=== PATIENT | female | born 1995 | race Caucasian/White ===

== ENCOUNTER 2016-09-29 10:30 | Emergency (ER) | payer OTHER ==
--- NOTE | 2016-09-29 11:37 | EDPHY ---
H & P Stated Complaint: Sent by nadya/magali for eval headache Time Seen by Provider: 09/29/16 11:03 HPI/ROS: CHIEF COMPLAINT: Headache, nausea/vomiting HISTORY OF PRESENT ILLNESS: The patient is a 20 y/o female arriving with her friends from [facility] for a worsening constant headache for the last 9 days. Her headache began while she was studying for classes with no preceding trauma or other event. The TIERNEY was mild at first and gradually increasing. She describes a "band around my head with pressure on my forehead." She took ibuprofen and used a hot compress without improvement. She was evaluated at [facility] on Sunday, 3 days ago, and was prescribed a medication for sinus problems. This did not improve her symptoms either and she has been unable to sleep due to pain, which she currently rates 7/10 in severity. Her symptoms are aggravated by light and certain positions like lying on her stomach. She has associated vomiting and sweating that has caused difficulty eating. She has been unable to attend some of her classes due to TIERNEY/vomiting. No vision changes , fever, dysuria, weakness, paresthesias, dyspnea, chest pain, neck pain, back pain. She did have strep pharyngitis 2 weeks ago. LMP was 3 years ago when she started control. Her vaccinations are up-to-date. REVIEW OF SYSTEMS: Constitutional: No fever, no chills Eyes: No visual changes ENT: No sore throat Respiratory: No cough, no shortness of breath Cardiac: No chest pain Gastrointestinal: see HPI Genitourinary: No hematuria, no dysuria Musculoskeletal: No leg pain or swelling Skin: No rash Neurological: see HPI Psychiatric: No depression - Personal History LMP (Females 10-55): Extended Cycle BCP/Inj Current Tetanus Diphtheria and Acellular Pertussis (TDAP): Yes - Medical/Surgical History PMH: "Hormone deficiency" with Metformin prescribed by her OBGYN. Vaccinations up-to-date. Other PMH: hormone problems - Social History Smoking Status: Never smoked Additional Social History: Friends at bedside. [employer] student. - Physical Exam Exam: General Appearance: Alert, no distress, well-appearing Eyes: Pupils equal and round, no conjunctival pallor or injection ENT, Mouth: Mucous membranes moist Neck: Normal inspection, supple Respiratory: Lungs are clear to auscultation Cardiovascular: Regular rate and rhythm Gastrointestinal: Abdomen is soft and non- tender Back: No CVA tenderness Neurological: A&O, CN II-XII intact, motor/sensory intact, normal gait Skin: Warm and dry, no rash Extremities: Nontender, no pedal edema Psychiatric: Mood and affect normal Constitutional: Initial Vital Signs Temperature (C) 36.5 C 09/29/16 10:35 Heart Rate 71 09/29/16 10:35 Respiratory Rate 18 09/29/16 10:35 Blood Pressure 117/80 09/29/16 10:35 O2 Sat (%) 97 09/29/16 10:35 O2 Delivery Mode Room Air Allergies/Adverse Reactions: No Known Allergies Allergy (Unverified 09/29/16 10:42) Home Medications: Medication Instructions Recorded Control 09/29/16 Hydrocodone/APAP 5/325 [Ferndale 1 - 2 tab PO Q4H PRN #10 tab 09/29/16 5/325] Ondansetron Odt [Zofran Odt 4 mg 4 mg PO Q4 PRN #6 tab 09/29/16 (*)] metFORMIN HCL [Glucophage 500 mg 500 mg PO 09/29/16 (*)] Medical Decision Making - Diagnostics Imaging Results: CT head: NAD Imaging: Discussed imaging studies w/ transportation planning engineer Radiologist, I viewed and interpreted images myself ED Course/Re-evaluation: This is a well-appearing 20 y/o female who presents for evaluation of a worsening 9-day headache with associated vomiting. Her exam is completely unremarkable: she has no CVA tenderness, her neck is supple, she is afebrile, and she has a normal neuro exam. Will investigate urinary causes for her symptoms first. Plan for IV, basic labs, UA, and symptom management. 1L IV NS, 10mg IV Reglan, 10mg IV Decadron, and 25mg IV Benadryl administered for symptoms. Urine dip is normal. WBC slightly elevated at 10.9. Plan for head CT. If that is negative will pursue spinal tap for possible viral meningitis. Head CT is negative. I reevaluated patient and discussed results. Patient feels improved after medication administration. Talking with friends and texting on phone as I enter the room. Neuro exam remains normal. I recommended lumbar puncture to rule out meningitis and discussed recommendation with patient's mother at her request. She agrees to procedure. 1400: Procedure: Lumbar puncture. Indication: headache x 9 days After verbal informed consent from patient explaining the risks including infection, bleeding, and neurologic damage, a lumbar puncture was performed after the patient was prepped and draped in the usual fashion. The back was anesthetized with 1% lidocaine. Approximately 4 cc of clear fluid was obtained. Opening pressure was not obtained. There were no complications. The procedure was performed by myself, Dr. Crandall. LP results d/w pt. No evidence of meningitis. Few RBC present, considered SAH , though clinical history is not suggestive of SAH, given 9 days of gradually increasing TIERNEY. Plan to f/u with neurology. Warning signs discussed. Differential Diagnosis: Headache including but not limited to subarachnoid hemorrhage, migraine headache , tension headache and infectious causes such as meningitis, pharyngitis and sinusitis. - Data Points Laboratory Results: Laboratory Results 09/29/16 10:59 09/29/16 10:59 Microbiology Results: MICROBIOLOGY 09/29/16 14:00 Cerebral Spinal Fluid Gram Stain - Final 09/29/16 14:00 Cerebral Spinal Fluid CSF Culture - Preliminary Medications Given: Discontinued Medications Dexamethasone (Decadron Injection) 10 mg IVP EDNOW ONE Stop: 09/29/16 11:49 Last Admin: 09/29/16 12:10 Dose: 10 mg Diphenhydramine HCl (Benadryl Injection) 25 mg IVP EDNOW ONE Stop: 09/29/16 11:49 Last Admin: 09/29/16 12:10 Dose: 25 mg Sodium Chloride (Ns) 1,000 mls @ 0 mls/hr IV EDNOW ONE; Wide Open PRN Reason: Protocol Stop: 09/29/16 11:42 Last Admin: 09/29/16 12:10 Dose: 1,000 mls Sodium Chloride (Ns) 1,000 mls @ 0 mls/hr IV ONCE ONE PRN Reason: Wide Open Stop: 09/29/16 17:03 Last Admin: 09/29/16 15:15 Dose: 1,000 mls Metoclopramide HCl (Reglan Injection) 10 mg IVP EDNOW ONE Stop: 09/29/16 11:49 Last Admin: 09/29/16 12:10 Dose: 10 mg Departure - Departure Disposition: Home, Routine, Self-Care Clinical Impression: Headache Qualifiers: Headache type: new daily persistent Qualified Code(s): G44.52 - New daily persistent headache (NDPH) Condition: Good Instructions: Acute Headache (ED) Additional Instructions: 1. Use ibuprofen or Excedrin as directed on the packaging as needed for headache for the next few days. 2. Follow up with Dr. Menchaca, neurologist, in the next week for evaluation for migraines. 3. Establish care with a primary care physician in the area. You've been referred to Dr. Vigil. 4. Return to the ED for worsening of condition including fever, weakness, numbness. Referrals: Ekaterina Vigil MD [Medical Doctor] - As per Instructions Abdelrahman Menchaca MD [Medical Doctor] - As per Instructions (Call today to make an appointment.) Prescriptions: Hydrocodone/APAP 5/325 [Ferndale 5/325] 1 - 2 tab PO Q4H PRN #10 tab PRN Reason: Pain, Moderate Ondansetron Odt [Zofran Odt 4 mg (*)] 4 mg PO Q4 PRN #6 tab PRN Reason: Nausea Report Scribed for: Sima Crandall Report Scribed by: Chitra Pruitt Date of Report: 09/29/16 Time of Report: 11:20 Physician Review and Approval Statement: 09/29/16 11:20 Portions of this note were transcribed by a medical coordinator pesticide use. I personally performed a history, physical exam, medical decision making, and confirmed accuracy of information the transcribed note.
[2016-09-29] MEDS ORDERED: ONDANSETRON 4 MG/2 ML VIAL IVP ONE (11:41)
[2016-09-29] MEDS ORDERED: NS 1,000 ML IV ONE ×2 (11:41→17:02)
[2016-09-29 11:47] LABS: % IMMATURE GRANULYOCYTES 0.5 % (0.0-1.1); ABSOLUTE IMMATURE GRANULOCYTES 0.05 10^3/uL (0.00-0.10); ADD DIFF? NO; ADD MORPH? NO; ADD SCAN? NO; ATYPICAL LYMPHOCYTE FLAG 10 (0-99); FRAGMENT RBC FLAG 0 (0-99); HEMATOCRIT 42.4 % (38.0-47.0); HEMOGLOBIN 14.9 g/dL (12.6-16.3); LEFT SHIFT FLG 0 (0-99); LIPEMIA HEMOLYSIS FLAG 90 (0-99); MEAN CELL HEMOGLOBIN 30.9 pg (27.9-34.1); MEAN CELL HEMOGLOBIN CONCENTR. 35.1 g/dL (32.4-36.7); MEAN PLATELET VOLUME 9.4 fL (8.7-11.7); PLATELET CLUMPS FLAG 20 (0-99); PLATELET COUNT 423 10^3/uL (150-400); RED BLOOD CELL COUNT 4.82 10^6/uL (4.18-5.33); RED CELL DISTRIBUTION WIDTH 11.9 % (11.5-15.2)
[2016-09-29] MEDS ORDERED: DEXAMETHASONE 10 MG/ML VIAL IVP ONE (11:48)
[2016-09-29] MEDS ORDERED: METOCLOPRAMIDE 10 MG/2 ML VIAL IVP ONE (11:48)
[2016-09-29 11:53] LABS: ANION GAP 12 mEq/L (8-16); CALCIUM 10.5 mg/dL (8.5-10.4); CARBON DIOXIDE 21 mEq/l (22-31); CHLORIDE 104 mEq/L (97-110); CREATININE 0.7 mg/dL (0.6-1.0); GLOMERULAR FILTRATION RATE > 60; GLUCOSE 93 mg/dL (70-100); POTASSIUM 4.3 mEq/L (3.5-5.2); SODIUM 137 mEq/L (134-144)
[2016-09-29 14:40] LABS: PROTEIN, CSF 44 mg/dL (12-60)
[2016-09-29 15:20] LABS: CSF APPEARANCE CLEAR (CLEAR); CSF COLOR COLORLESS (COLORLESS); CSF SUPERNATANT COLORLESS (COLORLESS); WBC, CSF 0 /mm3 (0-5)
[2016-09-29 15:21] LABS: CSF APPEARANCE CLEAR (CLEAR); CSF COLOR COLORLESS (COLORLESS); CSF SUPERNATANT COLORLESS (COLORLESS); WBC, CSF 0 /mm3 (0-5)
[2016-09-29 17:05] VITALS: BP 123/79; PULSE 71; RESP 16; TEMP 97.9; O2SAT 97
== END 2016-09-29 17:05 | disposition home or self-care (01) ==
PROC: 009U3ZX Drainage of Spinal Canal, Percutaneous Approach, Diagnostic (ICD-10-PCS; principal; 2016-09-29)
DX: G44.52 New daily persistent headache (NDPH) (principal); E86.9 Volume depletion, unspecified
CPT/HCPCS: 96374; J1100; J1200; J2765